=== PATIENT | female | born 1985 | race Caucasian/White ===

== ENCOUNTER → 2023-04-07 18:01 | Outpatient (CLI) | payer OTHER, MEDICAID, SELFPAY ==
[2023-04-07 19:17] LABS: Influenza A - CEPHEID Flu A NEGATIVE (NEGATIVE); Influenza B - CEPHEID Flu B NEGATIVE (NEGATIVE); Respiratory Syncytial Virus Negative (Negative)
[2023-04-07 19:21] LABS: COVID-19 CEPHEID 4-PLEX PCR Negative (Negative)
== END ==
PROVIDERS: Visit Provider Physician Assistant
DX: J02.9 Acute pharyngitis, unspecified (principal); Z20.822 Contact with and (suspected) exposure to COVID-19
CPT/HCPCS: 0241U; 87070; 87880